=== PATIENT | female | born 1955 | race Caucasian/White ===

== ENCOUNTER 2018-10-12 12:53 | Day surgery (SDC) | payer OTHER ==
[2018-10-12] VITALS (9 sets, daily range): BP systolic 90–139; BP diastolic 70–88; PULSE 75–79; RESP 12–16; Ht 154.9 cm; Wt 82.9 kg
[~2018-10-12] VITALS: Ht 154.9 cm; Wt 82.9 kg
[~2018-10-12 12:53] MED LIST: CETI10TA19 PO; FER325 PO
[2018-10-12] MEDS ORDERED: BUPIVACAINE 0.5% (SDV) 30 ML INJ ONE (16:18)
[2018-10-12] MEDS ORDERED: FENTAnyl 50 MCG/ML VIAL ONE (17:47)
[2018-10-12] MEDS ORDERED: PROPOFOL 20 ML ONE (17:51)
[2018-10-12] MEDS ORDERED: LIDOCAINE 2% (SDV) 5 ML INJ ONE (17:51)
[2018-10-12] MEDS ORDERED: CEFAZOLIN 1 GM INJ ONE (17:52)
[2018-10-12] MEDS ORDERED: MIDAZOLAM 1 MG/ML 2 ML INJ ONE (18:00)
[2018-10-12] MEDS ORDERED: ONDANSETRON 4 MG INJ IV PRN (18:00)
[2018-10-12] MEDS ORDERED: MEPERIDINE 25 MG INJ IV PRN (18:00)
[2018-10-12] MEDS ORDERED: PROCHLORPERAZINE 10 MG INJ IV PRN (18:00)
[2018-10-12] MEDS ORDERED: DIPHENHYDRAMINE 50 MG INJ IV PRN (18:00)
[2018-10-12] MEDS ORDERED: FENTAnyl 50 MCG/ML VIAL IV PRN (18:00)
[2018-10-12] MEDS ORDERED: HYDROmorphONE 1 MG/5 ML IV SYRINGE IV PRN ×3 (18:00)
== END 2018-10-12 19:05 | disposition home or self-care (01) ==
LOC: SDS 12:53
PROVIDERS: ATTEND Orthopaedic Surgery Hand Surgery
DX: M67.441 Ganglion, right hand (principal)
CPT/HCPCS: 26160; 71045; 80053; 85025; 85610; 85730; 88307; 93005; J0690; J2250; J3010; Z7512; Z7610